=== PATIENT | female | born 1995 | race Caucasian/White ===

== ENCOUNTER 2021-04-21 10:01 | Inpatient (IN) ==
[2021-04-21] MEDS ORDERED: Naloxone 0.4 MG/ML INJ IVP PRN (10:20)
[2021-04-21] MEDS ORDERED: Famotidine 20 MG/2 ML VIAL IVP PRN (10:20)
[2021-04-21] MEDS ORDERED: Metoclopramide 10 MG/2 ML VIAL IVP PRN ×2 (10:20→16:24)
[2021-04-21] MEDS ORDERED: CeFAZolin 2,000 MG/120 ML BAG IVPB ONE (10:23)
[2021-04-21] MEDS ORDERED: Ringers Solution, Lactated 1,000 ML IVC SCH ×2 (10:30→16:24)
[2021-04-21] MEDS ORDERED: EPHEDrine 50 MG/ML VIAL ONE (10:57)
[2021-04-21] MEDS ORDERED: Ketorolac 30 MG/ML VIAL ONE (10:57)
[2021-04-21] MEDS ORDERED: *HR* Morphine Sulfate/PF 10 MG/10 ML AMPUL ONE (10:57)
[2021-04-21] MEDS ORDERED: Ondansetron 4 MG/2 ML VIAL ONE (10:57)
[2021-04-21] MEDS ORDERED: *HR* FentaNYL (PF) 100 MCG/2 ML VIAL ONE (10:57)
[2021-04-21] MEDS ORDERED: *HR* Oxytocin 10 UNIT/ML VIAL IM ONE (10:58)
[2021-04-21] MEDS ORDERED: Ringers Solution, Lactated 1,000 ML ONE ×2 (10:59→12:43)
[2021-04-21 11:04] LABS: Basophils % 0.3 %; Eosinophils # 0.1 K/mcL (0.0-0.6); Eosinophils % 1.6 %; Hematocrit 36.7 % (35.3-44.9); Hemoglobin 11.4 g/dL (11.5-15.4); Immature Granulocytes % 0.4 % (0-4); Lymphocytes % 13.4 %; Mean Corpuscular HGB Conc 31.1 g/dL (31.6-35.5); Mean Corpuscular Hemoglobin 28.9 pg (28.0-33.3); Mean Corpuscular Volume 92.9 fL (83.0-100.0); Mean Platelet Volume 10.1 fL (9.4-12.4); Monocytes # 0.4 K/mcL (0.0-1.3); Monocytes % 5.7 %; Neutrophils # 5.9 K/mcL (1.6-8.9); Platelet Count 189 K/mcL (140-400); Red Blood Count 3.95 M/mcL (3.82-4.97); Segmented Neutrophils % 78.6 %; White Blood Count 7.5 K/mcL (4.3-11.1)
[2021-04-21] MEDS ORDERED: *HR* Nalbuphine 10 MG/ML AMPUL IV PRN ×2 (11:15→13:14)
[2021-04-21 11:40] LABS: Influenza A PCR Negative (Negative); Influenza B PCR Negative (Negative); Resp. Syncytial Virus PCR Negative (Negative)
[2021-04-21 11:45] LABS: SARS-CoV-2 by PCR (In House) Negative (Negative)
[2021-04-21] MEDS ORDERED: *HR* HYDROmorphone PF 0.5 MG/0.5 ML SYRINGE IVP PRN (13:13)
[2021-04-21] MEDS ORDERED: Promethazine 6.25 MG in Water for inj. (sterile) 20 ML IVPB PRN (13:13)
[2021-04-21] MEDS ORDERED: *HR* Labetalol 20 MG/4 ML SYRINGE IVP PRN (13:13)
[2021-04-21 13:55] LABS: Amphetamine Screen,Urine Negative ng/mL (Cutoff=1000); Barbiturate Screen,Urine Negative ng/mL (Cutoff=200); Benzodiazepines Screen,Urine Negative ng/mL (Cutoff=200); Cannabinoid Screen,Urine Negative ng/mL (Cutoff = 50); Cocaine Screen,Urine Negative ng/mL (Cutoff= 300); Opiate Screen,Urine Negative ng/mL (Cutoff=300); Phencyclidine Screen,Urine Negative ng/mL (Cutoff=25)
[2021-04-21] MEDS ORDERED: Oxytocin 20 units/ LR 1000 mL 20 UNIT/1,000 ML BAG IVC ONE (15:10)
[2021-04-21] MEDS ORDERED: Ondansetron 4 MG/2 ML VIAL IVP PRN (16:24)
[2021-04-21] MEDS ORDERED: Oxytocin 20 units/ LR 1000 mL 20 UNIT/1,000 ML BAG IVC SCH (16:24)
[2021-04-21] MEDS ORDERED: Simethicone 80 MG TAB.CHEW PO PRN (16:24)
[2021-04-21] MEDS ORDERED: *HR* OxyCODONE Immed Rel 5 MG TABLET PO PRN (16:24)
[2021-04-21] MEDS ORDERED: Rho Immune Globulin 1,500 UNIT SYRINGE IM ONE (16:24)
[2021-04-21] MEDS: Acetaminophen 325 MG TABLET PO SCH ×2 (17:03→21:39)
[2021-04-21] MEDS: Ibuprofen 600 MG TABLET PO SCH (21:38)
[2021-04-22] MEDS: Acetaminophen 325 MG TABLET PO SCH ×4 (04:00→23:28)
[2021-04-22] MEDS: Ibuprofen 600 MG TABLET PO SCH ×4 (04:00→23:27)
[2021-04-22 05:17] LABS: Basophils % 0.1 %; Eosinophils % 0.3 %; Hematocrit 29.5 % (35.3-44.9); Immature Granulocytes % 0.3 % (0-4); Lymphocytes # 1.3 K/mcL (0.6-4.6); Lymphocytes % 12.7 %; Mean Corpuscular HGB Conc 32.2 g/dL (31.6-35.5); Mean Corpuscular Volume 93.1 fL (83.0-100.0); Mean Platelet Volume 10.4 fL (9.4-12.4); Monocytes # 0.7 K/mcL (0.0-1.3); Monocytes % 7.2 %; Neutrophils # 7.9 K/mcL (1.6-8.9); Platelet Count 178 K/mcL (140-400); Red Blood Count 3.17 M/mcL (3.82-4.97); Red Cell Distribution Width 19.7 % (11.5-14.5); Segmented Neutrophils % 79.4 %
[2021-04-22 05:18] LABS: Hemoglobin 9.5 g/dL (11.5-15.4)
[2021-04-22] MEDS: Prenatal Vit/FA 1 EACH TABLET PO SCH (08:06)
[2021-04-22 19:55] VITALS: O2SAT 100
[2021-04-23] MEDS: Ibuprofen 600 MG TABLET PO SCH (06:30)
[2021-04-23] MEDS: Acetaminophen 325 MG TABLET PO SCH (06:31)
[2021-04-23 07:39] VITALS: BP 102/63; PULSE 77; TEMP 98.2
[2021-04-23] MEDS: Prenatal Vit/FA 1 EACH TABLET PO SCH (08:04)
== END 2021-04-23 12:11 | disposition home or self-care (01) | DRG 539 ==
LOC: 1NENULAB 10:01 → 1NENUOBS 16:19
PROVIDERS: ADMIT Student in an Organized Health Care Education/Training Program; ATTEND Student in an Organized Health Care Education/Training Program